=== PATIENT | male | born 1960 | race Caucasian/White ===

== ENCOUNTER 2017-06-10 09:53 | Emergency (ER) | payer MEDICAID ==
[~2017-06-10] VITALS: Ht 162.6 cm; Wt 50.9 kg
[~2017-06-10 09:53] MED LIST: ALBU18HF2 INH; AMLO5TAB16 PO; ATEN50TA8 PO; BACL20TA PO; CARB200T PO; FERR324T4 PO; IBUP-1985 PO; LISI40TA4 PO; OMEP20TA5 PO
[2017-06-10 10:10] VITALS: BP 165/106
[2017-06-10] MEDS ORDERED: HYDR-565 PO (11:37)
== END 2017-06-10 12:19 | disposition home or self-care (01) ==
LOC: ER 09:54
DX: M25.522 Pain in left elbow (principal); F12.10 Cannabis abuse, uncomplicated; Z79.899 Other long term (current) drug therapy; W10.9XXA Fall (on) (from) unspecified stairs and steps, initial encounter; Y93.89 Activity, other specified; Y92.89 Other specified places as the place of occurrence of the external cause; Y99.9 Unspecified external cause status
CPT/HCPCS: 29105; 73080; 99284; A4565; A6449

== ENCOUNTER 2017-06-29 10:16 | Outpatient (CLI) | payer MEDICAID ==
[~2017-06-29 10:16] MED LIST changes: +HYDR-565 PO
== END 2017-06-29 11:10 | disposition home or self-care (01) ==
LOC: ORTHO 10:16
PROVIDERS: ATTEND Nurse Practitioner Family
DX: M25.522 Pain in left elbow (principal); M85.88 Other specified disorders of bone density and structure, other site; F12.90 Cannabis use, unspecified, uncomplicated; R60.1 Generalized edema; Z72.89 Other problems related to lifestyle
CPT/HCPCS: 29105; 73080; A6449

== ENCOUNTER 2018-01-10 13:54 | Inpatient (IN) | payer MEDICAID ==
[~2018-01-10] VITALS: Ht 170.2 cm; Wt 46.0 kg
[~2018-01-10 13:54] MED LIST changes: -HYDR-565 PO
[2018-01-10] MEDS ORDERED: TAMS0.4C32 PO (14:22)
[2018-01-10] MEDS ORDERED: CETI10TA15 PO (14:26)
[2018-01-10] MEDS ORDERED: ACET500C5 PO (14:28)
[2018-01-10] MEDS ORDERED: CefTRIAXone 2gm/D5W 50ml 50 ML IV ONE (14:45)
[2018-01-10] MEDS ORDERED: vancomycin/NS 1 GM ADD-VANTAGE 250 ML IV ONE (14:45)
[2018-01-10 14:46] LABS: ALANINE AMINOTRANSFERASE 31 U/L (12-78); ALBUMIN 1.3 G/DL (3.4-5.0); ALBUMIN/GLOBULIN RATIO 0.3 (1.1-1.5); ALKALINE PHOSPHATASE 255 IU/L (46-116); ANION GAP 17 (8-16); BILIRUBIN,TOTAL 0.7 MG/DL (0.1-1.0); BLOOD UREA NITROGEN 19 MG/DL (7-18); BUN/CREATININE RATIO 12.6 (5.4-32.0); CALCIUM 7.3 MG/DL (8.5-10.1); CHLORIDE 98 MMOL/L (99-107); CREATININE 1.51 MG/DL (0.60-1.10); GLUCOSE 118 MG/DL (70-104); SODIUM 133 MMOL/L (135-145); TOTAL CARBON DIOXIDE 17.6 MMOL/L (24-32); TOTAL PROTEIN 5.7 G/DL (6.4-8.2); eGFR 48 ML/MIN
[2018-01-10] MEDS ORDERED: normal saline 1000ML IV soln IVB ONE (14:50)
[2018-01-10 14:53] LABS: ASPARTATE AMINO TRANSFERASE 44 U/L (10-37); MAGNESIUM 1.5 MG/DL (1.5-2.4); POTASSIUM 4.1 MMOL/L (3.5-5.1)
[2018-01-10] MEDS ORDERED: morphine 4 MG/ML inj SYRINge IV ONE (15:10)
[2018-01-10 15:17] LABS: CLARITY,URINE CLOUDY (Clear); COLOR,URINE YELLOW (Yellow); GLUCOSE, URINE NEGATIVE (Neg); KETONES,URINE TRACE mg/dl (Neg); LEUKOCYTE ESTERASE ,URINE NEGATIVE (Neg); NITRITES, URINE NEGATIVE (Neg); OCCULT BLOOD,URINE TRACE-LYSED (Neg); PROTEIN,URINE TRACE mg/dl (Neg); UA COLLECTION TYPE STRAIGHT CATH; UROBILINOGEN,URINE 0.2 E.U/dL (0.2-1.0)
[2018-01-10 15:34] LABS: HYALINE CASTS >30 /LPF (NEGATIVE); SQUAMOUS EPITHELIAL CELL,UR FEW /LPF (FEW)
[2018-01-10 15:38] LABS: MUCUS STRANDS FEW /LPF (Neg); RENAL CELLS, URINE FEW /HPF; TRANSITIONAL EPI CELLS,URINE FEW /HPF
[2018-01-10 15:41] LABS: AMORPHOUS URATES 2+
[2018-01-10 15:42] LABS: BACTERIA,URINE 1+ /HPF (Neg); RBC,URINE 0-2 /HPF (0-2); WBC,URINE 0-4 /HPF (0-4)
[2018-01-10 15:44] LABS: BASOPHILS # (AUTO) 0.1 X10'3 (0-0.2); BASOPHILS % (AUTO) 0.6 % (0-1); EOSINOPHILS % (AUTO) 0 % (0-6); HEMATOCRIT 32.4 % (42.0-52.0); LYMPHOCYTES # (AUTO) 0.9 X10'3 (1.1-4.8); LYMPHOCYTES % (AUTO) 4.2 % (21-51); MEAN CORPUSCULAR HEMOGLOBIN 38.6 PG (27.0-31.0); MEAN CORPUSCULAR HGB CONC 33.9 % (33.0-36.5); MEAN CORPUSCULAR VOLUME 113.8 FL (78-98); MEAN PLATELET VOLUME 8.4 FL (7.4-10.4); MONOCYTES # (AUTO) 0.9 X10'3 (0-0.9); NEUTROPHILS # (AUTO) 19.8 X10'3 (1.8-7.7); NEUTROPHILS % (AUTO) 91.2 % (42-75); PLATELET COUNT 252 X10'3 (140-440); RED BLOOD COUNT 2.84 X10'6 (4.70-6.10); RED CELL DISTRIBUTION WIDTH 15.5 % (11.5-14.5); WHITE BLOOD COUNT 21.7 X10'3 (4.5-11.0)
[2018-01-10 16:14] LABS: NUCLEATED RED BLOOD CELLS 1 /100WBC (0-0); PLATELET ESTIMATE NORMAL; TOTAL CELLS COUNTED 100
[2018-01-10] MEDS ORDERED: potassium Cl 20mEq in NS 1,000 ML IV SCH (16:14)
[2018-01-10] MEDS ORDERED: potassium Cl 40MEQ/NS 500ml 500 ML IV PRN ×2 (16:15)
[2018-01-10] MEDS ORDERED: potassium Cl 20 mEq SR tablet PO PRN ×2 (16:15)
[2018-01-10] MEDS ORDERED: magnesium 1gm/100ml D5W IVPB 100 ML IV PRN (16:15)
[2018-01-10] MEDS ORDERED: morphine 4 MG/ML inj SYRINge IV PRN ×2 (16:15)
[2018-01-10] MEDS ORDERED: acetaminophen 325mg tablet PO PRN (16:15)
[2018-01-10] MEDS ORDERED: ondansetron/PF 4mg/2ml inj IV PRN (16:15)
[2018-01-10] MEDS ORDERED: bisacodyl 10mg suppository rectal RC PRN (16:15)
[2018-01-10] MEDS ORDERED: magnesium 4gm in 100ml NS 100 ML IV PRN (16:15)
[2018-01-10] MEDS ORDERED: mag hydrox/Alum hydrox/simeth 30ml oral suspension PO PRN (16:15)
[2018-01-10] MEDS ORDERED: magnesium Cl slow-release 64mg tablet PO PRN (16:15)
[2018-01-10] MEDS ORDERED: magnesium hydroxide 30ml (MOM) UD suspension PO PRN (16:15)
[2018-01-10] MEDS ORDERED: CefTRIAXone/D5W-Rocephin 1gm 50 ML IV SCH (16:20)
[2018-01-10] MEDS ORDERED: pantoprazole 40 MG vial IV SCH (16:20)
[2018-01-10] MEDS ORDERED: folic acid inj. 2 MG, thiamine inj. 100 MG, MVI, adult No.4 with vit. K 10 ML in dextro... IV SCH ×4 (16:20)
[2018-01-10] MEDS ORDERED: LORazepam 1 MG tablet PO PRN (16:20)
[2018-01-10] MEDS ORDERED: LORazepam 2 mg/ml vial IV PRN ×2 (16:20→17:55)
[2018-01-10] MEDS ORDERED: nicotine 21mg patch - 24 hr TD SCH (16:20)
[2018-01-10 16:21] LABS: BURR CELLS FEW; SCHISTOCYTES FEW
[2018-01-10] MEDS ORDERED: albuterol 2.5 MG/3 ML nebule NEB PRN (16:25)
[2018-01-10] MEDS ORDERED: vancomycin/NS 1 GM ADD-VANTAGE 250 ML IV SCH ×2 (17:00→20:00)
[2018-01-10 17:09] LABS: LIPASE < 50 U/L (73-393)
[2018-01-10 17:10] LABS: PHOSPHORUS 6.9 MG/DL (2.3-4.5)
[2018-01-10] MEDS ORDERED: morphine 10 MG/5 ML UD oral solution PO PRN (17:55)
[2018-01-10] MEDS ORDERED: morphine 10mg/ml inj. IV PRN (17:55)
[2018-01-10] MEDS ORDERED: normal saline 500ml IV soln 500 ML IV ONE (18:15)
[2018-01-10 18:56] LABS: ABG BASE EXCESS -9.9 mmol/L (-2.0-3.0); ABG HCO3 17.6 mmol/L (22.0-26.0); ABG OXYGEN SATURATION 70.4 % (95-98); ABG PCO2 (T) 45.4 mmHg (35.0-48.0); ABG PH (T) 7.206 (7.350-7.450); ABG PO2 (T) 47.4 mmHg (83-108); FCOHb 0.1 % (0.5-1.5); FLOW 4 L/min; FO2Hb 70.3 % (94-100); RESPIRATORY RATE (OBSERVED) 24 b/min; TOTAL HEMOGLOBIN 10.7 G/dl (14.0-18.0)
[2018-01-10] MEDS ORDERED: [UNRECOGNIZED DRUG - OTHER] IV SCH (19:10)
[2018-01-10] MEDS ORDERED: POTASSIUM CL IV SCH (19:10)
[2018-01-10] MEDS ORDERED: SODIUM BICARBONATE IV SCH (19:10)
[2018-01-10] MEDS ORDERED: sodium bicarbonate (8.4%) inj. 50 MEQ, Potassium Cl inj 20 MEQ in sodium chloride 0.45%... IV SCH (19:20)
[2018-01-10] MEDS ORDERED: heparin, porcine 5000 units/ml vial SQ SCH (20:00)
[2018-01-10 20:06] VITALS: BP 88/60
[2018-01-11] MEDS ORDERED: K and/or MAG REPLACEMENT MC SCH (08:00)
[2018-01-11] MEDS ORDERED: vancomycin/NS 1 GM ADD-VANTAGE 250 ML IV SCH (17:00)
[2018-01-13] MEDS ORDERED: VANCOMYCIN LEVEL IV ONE (16:30)
== END 2018-01-11 01:45 | disposition expired | DRG 720 ==
LOC: ER 13:55 → ED HOLD 16:14 → EDBEDREQ 19:48 → CANBEDREQ 20:56
PROVIDERS: ADMIT Internal Medicine; ATTEND Internal Medicine
DX: A41.9 Sepsis, unspecified organism (principal); J96.00 Acute respiratory failure, unspecified whether with hypoxia or hypercapnia; E43 Unspecified severe protein-calorie malnutrition; R64 Cachexia; G92 Toxic encephalopathy; E87.4 Mixed disorder of acid-base balance; I50.9 Heart failure, unspecified; I11.0 Hypertensive heart disease with heart failure; E86.0 Dehydration; R62.7 Adult failure to thrive; M85.80 Other specified disorders of bone density and structure, unspecified site; N39.0 Urinary tract infection, site not specified; Z66 Do not resuscitate; L03.115 Cellulitis of right lower limb; L03.116 Cellulitis of left lower limb; J44.9 Chronic obstructive pulmonary disease, unspecified; F17.200 Nicotine dependence, unspecified, uncomplicated; G40.909 Epilepsy, unspecified, not intractable, without status epilepticus; F12.90 Cannabis use, unspecified, uncomplicated; K29.20 Alcoholic gastritis without bleeding; F10.10 Alcohol abuse, uncomplicated; Z91.19 Patient's noncompliance with other medical treatment and regimen; Z85.819 Personal history of malignant neoplasm of unspecified site of lip, oral cavity, and pharynx; Z99.3 Dependence on wheelchair; Z71.6 Tobacco abuse counseling; Z71.41 Alcohol abuse counseling and surveillance of alcoholic; Z91.14 Patient's other noncompliance with medication regimen; Z79.899 Other long term (current) drug therapy; Z68.1 Body mass index [BMI] 19.9 or less, adult
CPT/HCPCS: 36415; 36600; 71045; 80053; 81001; 82803; 82948; 83605; 83690; 83735; 83880; 84100; 84145; 84484; 85018; 85025; 87040; 87077; 87186; 93005; 93970; 96365; 96366; 96368; 96375; 99291; A4353; A6255; C9113; J0696; J2270; J3370; J3411; J3480; J3490; J7030; J7060